=== PATIENT | female | born 1965 | race African-American/Black ===

== ENCOUNTER 2017-06-18 12:00 | Outpatient (CLI) | payer BC ==
[2017-06-18 13:45] LABS: Anion Gap 12 mmol/L (10-20); BUN (Urea Nitrogen) 12 mg/dL (9.8-20.1); Calc. Creatinine Clearance 0 mL/min (70-130); Calcium 9.4 mg/dL (7.8-10.44); Carbon Dioxide 25 mmol/L (22-29); Chloride 105 mmol/L (98-107); Estimated GFR-MDRD 82
--- NOTE | 2017-06-21 06:46 | EKG ---
Test Reason : Blood Pressure : / mmHG Vent. Rate : 050 BPM Atrial Rate : 050 BPM P-R Int : 110 ms QRS Dur : 096 ms QT Int : 436 ms P-R-T Axes : 064 089 027 degrees QTc Int : 397 ms Sinus bradycardia with short MN Possible Left atrial enlargement Nonspecific ST and T wave abnormality Abnormal ECG No previous ECGs available Confirmed by TIFFANIE PALUMBO ([id number]) on 06/21/2017 6:45:31 AM Referred By: ELIANA Confirmed By:TIFFANIE PALUMBO
== END 2017-06-18 12:01 | disposition home or self-care (01) ==
LOC: LABBT 12:00
PROVIDERS: ATTEND Specialist
DX: Z01.818 Encounter for other preprocedural examination (principal); K40.90 Unilateral inguinal hernia, without obstruction or gangrene, not specified as recurrent
CPT/HCPCS: 80048; 93005; 93010

== ENCOUNTER → 2017-06-29 | Day surgery (SDC) | payer BC ==
[2017-06-18 12:30] VITALS: BMI 24.4
[~2017-06-29] MED LIST: Bupivacaine PF 0.5% 30 ML VIAL ONE; Dexamethasone 20 MG/5 ML VIAL ONE; Fentanyl 250 MCG/5 ML VIAL ONE; Glycopyrrolate 0.2 MG/ML 5 ML SYRINGE ONE; HYDROcodone/Acetaminophen 5/325 mg Tablet ONE; Ketorolac Tromethamine 30 MG/ML VIAL ONE; Lidocaine 1% PF 5 ML VIAL ONE; Lidocaine 1% w/Epinephrine 1:200K 30 ML VIAL ONE; Midazolam HCl 2 mg/2 ml Vial ONE; Ondansetron HCl/PF 4 MG/2 ML Vial IVP PRN; Ondansetron HCl/PF 4 MG/2 ML Vial ONE; Promethazine HCl 25 MG/ML VIAL IM/IV PRN; Promethazine HCl 25 MG/ML VIAL ONE; Propofol 200 MG/20 ML VIAL ONE; ePHEDrine/0.9% NaCl/PF SYRINGE 50 mg/10 ml ONE
--- NOTE | 2017-06-30 19:54 | OP ---
DATE OF PROCEDURE: 06/29/2017 PREOPERATIVE DIAGNOSIS: Left inguinal hernia. POSTOPERATIVE DIAGNOSIS: Left inguinal hernia, indirect. OPERATION PERFORMED: Robotic repair of left inguinal hernia with large 3DMax mesh patch. SURGEON: Jamshid Horner M.D. ANESTHESIA: General endotracheal. INDICATIONS: The patient is a 51-year-old black female. She presented with an easily visible and p alpable left inguinal hernia. She is taken to the operating room at this time for robotic/laparosco pic repair. OPERATIVE PROCEDURE IN DETAIL: Informed consent was obtained. The patient was taken to the operati ng room where general endotracheal anesthesia was obtained with the patient in supine position. Fol ey catheter was placed. Abdomen was prepped with ChloraPrep and draped in sterile fashion. She had a prior umbilical hernia repair. I therefore placed the supraumbilical incision a few centimeters superior to the umbilicus to avoid the mesh. A 12 mm incision was created through which a Veress ne edle was passed into the peritoneal cavity and pneumoperitoneum established using carbon dioxide up to a pressure of 15 mmHg. A 12 mm trocar port was passed through this same incision. Laparoscopic camera was passed through this port. Under direct vision, two additional 8 mm ports were placed abo ut 10 cm away on either side of midline. There was noted to be omental adhesions to the umbilical patch and the umbilical patch was in good p osition. These omental adhesions were taken down using electrocautery. Attention was turned to the groin. Right groin was inspected and there was noted to be an area of probable weakness, but no de finite hernia formation. We decided against repairing anything on the right. Attention was turned to the left. There was an obvious indirect inguinal hernia with pretty substan tial defect. Transverse peritoneal incision was created several centimeters superiorly extending from the median umbilical ligament laterally towards the anterior superior iliac spine. Preperitoneal dissection wa s carried out extending inferiorly. I identified Luis E's ligament and pubic tubercle medially, the hernia defect in the center and I cleared the lateral space to give room for mesh. The hernia sac was carefully dissected off the underlying structures. The peritoneum was dissected superiorly to t horoughly clear the retroperitoneal space to allow location for mesh placement. I initially tried t o dissect the peritoneum off the round ligament, but found that the peritoneum was fairly densely at tached and I could not dissect the peritoneum off without dissecting through the peritoneum. I michelle cain decided to divide the round ligament. A large 3DMax mesh patch was obtained and placed within the preperitoneal space. It was secured in place with 3 interrupted sutures of 3-0 Vicryl. One of these was to the pubic tubercle, one was the anterior just lateral to the epigastric vessels, and the final suture was lateral, but above the il iopubic tract. The peritoneum was closed with a running suture of 3-0 Stratafix. There was a defect where I had tr ied to dissect the peritoneum off the round ligament and this was closed with a suture of 3-0 Vicryl . The fascia at the 12 mm port site was closed with 0 Vicryl suture using a GraNee needle. All ports and instruments were removed under direct vision. Pneumoperitoneum was carefully evacuated. Quarte r percent Marcaine with epinephrine was infiltrated in each port site. Skin edges approximated with 4-0 Monocryl subcuticular suture. Dermabond was placed externally. There were no complications. The patient tolerated the procedure well and was taken to recovery in stable condition.
== END ==
LOC: SDC 10:32
PROVIDERS: ATTEND Specialist
PROC: 8E0W4CZ Robotic Assisted Procedure of Trunk Region, Percutaneous Endoscopic Approach (ICD-10-PCS; principal; 2017-06-29)
PROC: 0YU64JZ Supplement Left Inguinal Region with Synthetic Substitute, Percutaneous Endoscopic Approach (ICD-10-PCS; principal; 2017-06-29)
DX: K40.30 Unilateral inguinal hernia, with obstruction, without gangrene, not specified as recurrent (principal); I10 Essential (primary) hypertension; Z79.899 Other long term (current) drug therapy; Z88.5 Allergy status to narcotic agent; Z98.890 Other specified postprocedural states; Z82.49 Family history of ischemic heart disease and other diseases of the circulatory system
CPT/HCPCS: S2900; C1781; J0131; J1100; J1170; J1885; J2001; J2250; J2405; J2550; J2704; J3010; S0020